=== PATIENT | female | born 1990 | race Asian ===

== ENCOUNTER 2023-12-22 07:37 | Inpatient (IN) ==
[2023-12-22] MEDS ORDERED: LIDOCAINE 1% LOCAL 20 ML VIAL INFIL PRN (08:36)
[2023-12-22] MEDS ORDERED: OXYTOCIN 30 UNITS/NSS 30 UNITS/500 ML BAG IV PRN ×2 (08:36→20:34)
[2023-12-22] MEDS ORDERED: CALCIUM CARBONATE 500 MG CHEWABLE TAB PO PRN (08:36)
[2023-12-22] MEDS ORDERED: ACETAMINOPHEN 325 MG TAB PO PRN ×2 (08:36→20:34)
--- NOTE | 2023-12-22 08:39 | History & Physical Report ---
Date of Service December 22, 2023 Assessment & Plan (1) IUGR (intrauterine growth restriction) affecting care of mother: (2) with 37 weeks completed gestation: Plan Patient has been extensively counseled by myself and Dr. Bennett last week. discussed the inability to differentiate iugr from constitutional sga. Both of the parents are very little people and likely more constitutional than iugr. Discussed that baby may not tolerate labor and will require c/s. discussed that hopefully the baby will do well here but if needs higher level of care, will need transfer to nicu. This might mean they are . If they do not want any change of separation, would recommend delivery at tertiary care center. Patient and FOB are ok with proceeding here. category one strip noted and reactive nst. Will need cervical ripening and discussed papa r/b/se of solomon, they agree. Discussed epidural, solomon, pitocin, arom. This conversation was held using an rangeland management specialist. All questions answered to the best of my ability. Admission and Anticipated Discharge Date Admission Date: December 22, 2023 History of Present Illness Chief Complaint: iol for iugr Primary Care Provider: NO PCP Patient is a 33yovf who presents to labor and delivery at 37 4/7 weeks for iol for iugr. Patient is a transfer of care at 32 weeks from [facility]. Most recent ultrasound showed efw 2%, 1962g, 4#5oz +/- 10 oz. discussed with peds hospitalist who notes they are ok with the delivery here. She notes good fm and testing has always been very reassuring. Notes good fm. no lof/vb. and Delivery Plans Transfer into care @ 32+ weeks IUGR *Twice weekly NST/DVP@Dx *Weeklyl doppler@Dx *Growth US Q4wk @Dx *Deliver [id number] (unless abnml flow) *Deliver 37wks (less than 3rd%) <2% - IOL 12/21 [place] rangeland management specialist used for provider OB Labs: Blood Type B Positive 11/14/23 Antibody Screen NEGATIVE 11/14/23 Hgb 11.8 g/dl (12.0-16.0) L 11/14/23 Hct 36.2 % (37.0-47.0) L 11/14/23 MCV 83.4 fL (80.0-100.0) 11/14/23 Plt Count 265 K/uL (130-400) 11/14/23 Rubella IgG Antibody Immune (Immune) 11/14/23 Treponema pallidum Ab Negative (Negative) 11/14/23 Hep Bs Antigen Negative (Negative) 11/14/23 Hepatitis C Antibody Negative (Negative) 11/14/23 HIV 1&2 Ab/P24 Ag 4thGn Negative (Negative) 11/14/23 OB Optional Labs: Chlamydia trachomatis RNA Not Detected (NotDetected) 11/14/23 Neisseria gonorrhoeae RNA Not Detected (NotDetected) 11/14/23 Labs Reviewed: first trimester screen and cfDNA--low risk smp gbs neg Allergies Allergy/AdvReac Type Severity Reaction Status Date / Time No Known Allergies Allergy Verified 12/16/23 13:18 Home Medications Medication Instructions Recorded Confirmed Type vit 18-[id number]-zubse-dha PO 11/14/23 12/16/23 History [ + DHA] Breast Pump #1 ea 12/12/23 12/16/23 Rx Patient History Medical History Varicella vaccination Surgical History No history of previous surgery Family History Denies family history of Ovarian cancer Breast cancer Colorectal cancer Social History Smoking Status: Never smoker Do You Dip or Chew Tobacco: No; Hx Alcohol Use: No Hx Substance Use: No Preferred Language: Greenlandic Communication Tools: IPad Visual Impairment: Limited Hearing Ability: Normal Gate Services Supervisor Required: Yes and Video Beliefs That Will Affect Care: None marital status: marital status details: Kelsey House ( [phone] Current Living Situation: Spouse Current Living Situation Comment: lives with spouse, no pets current occupational status: unemployed current occupation: homemaker Feels Safe at Home: Yes Safety Concerns: Feels Safe At This Time Diet: regular Gender Identity: Female Assistive Devices: Glasses OB History g1--current WHIP SAWYER History noncontributory Physical Exam Constitutional: WD/WN, vitals as above Gastrointestinal (Abdomen): soft, gravid, nt Neurologic: patellar DTR's 2+ bilat, sensation intact Psychiatric: A+Ox3, euthymic affect Genitourinary: cx--1/50/-2/mid/soft toco--occasional contractions efm--130s wtih mod variability, accels to 160s, no decels Results & Data Vital Signs (Past 12 Hours) Vital Signs Temp Pulse Resp BP 12/22/23 07:48 37.2 C 85 18 117/64 Coding Level of Care Code None Diagnoses IUGR (intrauterine growth restriction) affecting care of mother O36.5990 with 37 weeks completed gestation Z3A.37
[2023-12-22 09:23] LABS: Hematocrit (blood only) 37.3 % (37.0-47.0); Hemoglobin 12.2 g/dl (12.0-16.0); Mean Corpuscular Hemoglobin 27.2 pg (25.0-34.0); Mean Corpuscular Hgb Conc 32.7 g/dL (32.0-36.0); Mean Corpuscular Volume 83.1 fL (80.0-100.0); Mean Platelet Volume 10.6 fL (9.4-12.4); Platelet Count 281 K/uL (130-400); RDW Coefficient of Variation 13.7 % (11.5-14.5); RDW Standard Deviation 41.1 fL (36.4-46.3); Red Blood Count 4.49 M/uL (4.20-5.40); White Blood Count 11.45 K/ul (4.8-10.8)
--- NOTE | 2023-12-22 09:31 | Communication Note ---
Date of Service: December 22, [address] solomon failed as balloon just kept falling out when inflating. plan to just start with pitocin. cx --2+/50/-2, very soft.
[2023-12-22] MEDS: LACTATED RINGER'S 1,000 ML IV PRN (09:35)
[2023-12-22] MEDS: OXYTOCIN 30 UNITS/NSS 30 UNITS/500 ML BAG IV PRN (09:56)
--- NOTE | 2023-12-22 14:20 | Labor Progress Brief Note ---
Date of Service December 22, 2023 Subjective not noting alot of pain with contractions. Assessment & Plan (1) with 37 weeks completed gestation: (2) IUGR (intrauterine growth restriction) affecting care of mother: Plan Discussed options of epidural then arom vs. arom then epidural with artificial breeding technician. She elected to go wtih arom. Exam was uncomfortable. Epidural prior to next exam. fetus categroy one. Admission and Anticipated Discharge Date Admission Date: December 22, 2023 Physical Exam Physical Exam: cx--50/-2 arom--clear toco--q2-3, pit at 12 efm--130s wtih mod variability, accels present, no decels Results & Data Vital Signs (Past 12 Hours) Vital Signs Temp Pulse Resp BP 12/22/23 14:15 37.1 C 20 12/22/23 13:49 82 12/22/23 13:49 107/58 L 12/22/23 13:19 85 12/22/23 13:19 107/60 12/22/23 12:49 76 12/22/23 12:49 105/57 L 12/22/23 12:19 82 12/22/23 12:19 104/59 L 12/22/23 12:05 37.1 C 20 12/22/23 11:49 75 12/22/23 11:49 93/54 L 12/22/23 11:13 77 12/22/23 11:13 93/50 L 12/22/23 11:12 73 12/22/23 11:12 89/55 L 12/22/23 10:56 88 16 12/22/23 10:56 106/62 12/22/23 10:41 85 12/22/23 10:41 106/62 12/22/23 10:26 81 16 12/22/23 10:26 111/65 12/22/23 10:11 78 12/22/23 10:11 115/68 12/22/23 07:48 37.2 C 85 18 117/64 Coding Level of Care Code None Diagnoses with 37 weeks completed gestation Z3A.37 IUGR (intrauterine growth restriction) affecting care of mother O36.5990
[2023-12-22] MEDS ORDERED: NALOXONE HCL 0.4 MG/1 ML VIAL/CARP IV PRN (15:41)
[2023-12-22] MEDS ORDERED: NALOXONE HCL 1 MG in SODIUM CHLORIDE 0.9% 1,000 ML IV PRN (15:41)
[2023-12-22] MEDS ORDERED: BUPIVACAINE 0.25% PF 30 ML VIAL EPI PRN (15:41)
[2023-12-22] MEDS ORDERED: BUPIVACAINE 0.25% PF 30 ML VIAL EPI STA (15:41)
[2023-12-22] MEDS ORDERED: ROPIVACAINE 0.5% PF 5 MG/ML 20 ML VIAL EPI PRN (15:41)
[2023-12-22] MEDS ORDERED: SODIUM CHLORIDE 0.9% PF INJ 10 ML VIAL EPI PRN (15:41)
[2023-12-22] MEDS ORDERED: LIDOCAINE 2% MPF LOCAL 5 ML VIAL EPI PRN (15:41)
[2023-12-22] MEDS ORDERED: fentaNYL citrate PF 100 MCG/2 ML VIAL EPI STA (15:41)
[2023-12-22] MEDS ORDERED: NALBUPHINE HCL INJ 10 MG/ML AMP IV PRN (15:41)
[2023-12-22] MEDS ORDERED: SODIUM CHLORIDE 0.9% PF INJ 10 ML VIAL EPI STA (15:41)
[2023-12-22] MEDS ORDERED: ePHEDrine sulfate 50 MG/ML AMP IV PRN (15:41)
[2023-12-22] MEDS ORDERED: LIDOCAINE 2%/EPINEPHRINE 1:200,000 20 ML PF EPI STA (15:41)
[2023-12-22] MEDS ORDERED: diphenhydrAMINE 50 MG/ML VIAL IV PRN (15:41)
[2023-12-22] MEDS ORDERED: fentANYL 2 MCG/ML BUPIVacaine 0.125%-NSS 100ML BAG EPI PRN (15:41)
[2023-12-22] MEDS ORDERED: fentaNYL citrate PF 100 MCG/2 ML VIAL EPI PRN (15:41)
--- NOTE | 2023-12-22 15:43 | Anesthesiology Consultation ---
Date of Service December 22, 2023 Assessment & Plan Chart Review Chart Review: Acceptable Risk for Labor Epidural Consults Requested none History Height/Weight Height: 5 ft 1.42 in Weight: 67.313 kg Allergies Allergy/AdvReac Type Severity Reaction Status Date / Time No Known Allergies Allergy Verified 12/16/23 13:18 Medications Home Medications Medication Instructions Recorded Confirmed Last Taken Breast Pump #1 ea 12/12/23 12/16/23 Unknown vits no.124-ferrous fum 1 tab PO DAILY 12/22/23 12/22/23 12/21/23 07:00 27 mg iron-folic acid 800 mcg tablet ( Vitamin) Active Medications Generic Name Dose Route Start Last Admin Trade Name Freq PRN Reason Stop Dose Admin Lactated Ringer's 1,000 mls @ 125 mls/hr 12/22/23 08:36 12/22/23 09:35 Lr IV 12/24/23 08:35 50 mls/hr .Q8H PRN Administration L&D Protocol Protocol Oxytocin 30 units in 500 mls @ 16 mls/hr 12/22/23 09:46 12/22/23 15:15 Pitocin 30 Units/Nss IV 12/24/23 09:45 0.96 units/hr .Q24H PRN 16 mls/hr Labor Induction/Augmentation Titration Protocol 0.96 UNITS/HR Past Medical History Medical History Varicella vaccination Past Family History Family History Denies family history of Ovarian cancer Breast cancer Colorectal cancer Past Surgical History Surgical History No history of previous surgery Social History Smoking Status: Never smoker Do You Dip or Chew Tobacco: No Hx Alcohol Use: No Hx Substance Use: No substance use type: does not use Physical Exam Vital Signs Last Vital Signs Temp 37.1 C 12/22/23 14:15 Pulse 76 12/22/23 15:18 Resp 20 12/22/23 14:15 BP 104/61 12/22/23 15:18 Testing Laboratory Results 12/22/23 08:57
[2023-12-22] MEDS: LIDOCAINE 2%/EPINEPHRINE 1:200,000 20 ML PF ONE (16:00)
[2023-12-22] MEDS: fentANYL 2 MCG/ML BUPIVacaine 0.125%-NSS 100ML BAG ONE (16:07)
[2023-12-22] MEDS: BUPIVACAINE 0.25% PF 30 ML VIAL ONE (16:16)
[2023-12-22] MEDS: SODIUM CHLORIDE 0.9% PF INJ 10 ML VIAL ONE (16:17)
[2023-12-22] MEDS: fentaNYL citrate PF 100 MCG/2 ML VIAL ONE (16:17)
--- NOTE | 2023-12-22 18:04 | Labor Progress Brief Note ---
Date of Service December 22, 2023 Subjective comfortable Assessment & Plan (1) with 37 weeks completed gestation: (2) IUGR (intrauterine growth restriction) affecting care of mother: Plan continue current management. fetus mostly category 1. Admission and Anticipated Discharge Date Admission Date: December 22, 2023 Physical Exam Physical Exam: toco--qq2-4, pit at 20 efm--130s with mod variability, accels present, rare variable Results & Data Vital Signs (Past 12 Hours) Vital Signs Temp Pulse Resp BP Pulse Ox 12/22/23 18:00 93 H 12/22/23 17:55 96 12/22/23 17:55 83 12/22/23 17:50 95 12/22/23 17:50 84 12/22/23 17:48 81 12/22/23 17:48 106/61 12/22/23 17:45 96 12/22/23 17:45 87 12/22/23 17:40 95 12/22/23 17:40 81 12/22/23 17:35 94 12/22/23 17:35 85 12/22/23 17:33 81 12/22/23 17:33 101/59 L 12/22/23 17:30 94 12/22/23 17:30 88 12/22/23 17:25 95 12/22/23 17:25 83 12/22/23 17:20 95 12/22/23 17:20 76 12/22/23 17:19 80 12/22/23 17:19 104/61 12/22/23 17:15 95 12/22/23 17:15 85 12/22/23 17:10 96 12/22/23 17:10 82 12/22/23 17:05 96 12/22/23 17:05 83 12/22/23 17:04 85 12/22/23 17:04 104/62 12/22/23 17:00 93 12/22/23 17:00 85 12/22/23 16:55 93 12/22/23 16:55 83 12/22/23 16:53 92 12/22/23 16:53 83 12/22/23 16:50 93 12/22/23 16:50 85 12/22/23 16:48 86 12/22/23 16:48 102/58 L 12/22/23 16:45 16 94 12/22/23 16:45 81 12/22/23 16:44 94 12/22/23 16:44 84 12/22/23 16:40 36.9 C 16 12/22/23 16:40 95 12/22/23 16:40 87 12/22/23 16:37 94 12/22/23 16:37 81 12/22/23 16:35 96 12/22/23 16:35 78 12/22/23 16:33 82 12/22/23 16:33 102/60 12/22/23 16:30 95 12/22/23 16:30 86 12/22/23 16:28 94 12/22/23 16:28 81 12/22/23 16:25 95 12/22/23 16:25 77 12/22/23 16:21 94 12/22/23 16:21 85 12/22/23 16:20 95 12/22/23 16:20 83 12/22/23 16:18 85 12/22/23 16:18 103/59 L 12/22/23 16:16 83 12/22/23 16:16 101/58 L 12/22/23 16:15 96 12/22/23 16:15 85 12/22/23 16:14 75 12/22/23 16:14 104/59 L 12/22/23 16:12 73 12/22/23 16:12 101/56 L 12/22/23 16:10 95 12/22/23 16:10 73 12/22/23 16:10 95/53 L 12/22/23 16:10 94 12/22/23 16:10 83 12/22/23 16:08 83 12/22/23 16:08 100/55 L 12/22/23 16:06 74 12/22/23 16:06 105/56 L 12/22/23 16:05 96 12/22/23 16:05 88 12/22/23 16:05 76 12/22/23 16:05 86/48 L 12/22/23 16:02 86 12/22/23 16:02 98/54 L 12/22/23 16:00 97 12/22/23 16:00 92 H 12/22/23 15:55 96 12/22/23 15:55 69 12/22/23 15:50 97 12/22/23 15:50 85 12/22/23 15:50 106/68 12/22/23 15:18 76 12/22/23 15:18 104/61 12/22/23 14:49 81 12/22/23 14:49 106/61 12/22/23 14:18 82 12/22/23 14:18 105/66 12/22/23 14:15 37.1 C 20 12/22/23 13:49 82 12/22/23 13:49 107/58 L 12/22/23 13:19 85 12/22/23 13:19 107/60 12/22/23 12:49 76 12/22/23 12:49 105/57 L 12/22/23 12:19 82 12/22/23 12:19 104/59 L 12/22/23 12:05 37.1 C 20 12/22/23 11:49 75 12/22/23 11:49 93/54 L 12/22/23 11:13 77 12/22/23 11:13 93/50 L 12/22/23 11:12 73 12/22/23 11:12 89/55 L 12/22/23 10:56 88 16 12/22/23 10:56 106/62 12/22/23 10:41 85 12/22/23 10:41 106/62 12/22/23 10:26 81 16 12/22/23 10:26 111/65 12/22/23 10:11 78 12/22/23 10:11 115/68 12/22/23 07:48 37.2 C 85 18 117/64 Coding Level of Care Code None Diagnoses with 37 weeks completed gestation Z3A.37 IUGR (intrauterine growth restriction) affecting care of mother O36.5990
[2023-12-22] MEDS: ePHEDrine sulfate 50 MG/ML AMP ONE (19:11)
[2023-12-22 19:29] VITALS: RESP 18
--- NOTE | 2023-12-22 19:36 | Labor Progress Brief Note ---
Date of Service December 22, 2023 Subjective more uncomfortable Assessment & Plan (1) with 37 weeks completed gestation: (2) IUGR (intrauterine growth restriction) affecting care of mother: Plan begin second stage. Will have peds at delivery. Admission and Anticipated Discharge Date Admission Date: December 22, 2023 Physical Exam Physical Exam: c/c/+3 efm--150s with mod variabilityi, variables with some contractions toco--q2-3min Results & Data Vital Signs (Past 12 Hours) Vital Signs Temp Pulse Resp BP Pulse Ox 12/22/23 19:30 97 12/22/23 19:30 75 12/22/23 19:25 95 12/22/23 19:25 84 12/22/23 19:20 95 12/22/23 19:20 82 12/22/23 19:18 72 12/22/23 19:18 103/60 12/22/23 19:15 18 12/22/23 19:15 36.7 C 18 12/22/23 19:15 96 12/22/23 19:15 85 12/22/23 19:10 95 12/22/23 19:10 89 12/22/23 19:05 96 12/22/23 19:05 89 12/22/23 19:03 96 H 12/22/23 19:03 111/65 12/22/23 19:00 95 12/22/23 19:00 92 H 12/22/23 18:55 95 12/22/23 18:55 91 H 12/22/23 18:50 95 12/22/23 18:50 85 12/22/23 18:48 90 12/22/23 18:48 111/63 12/22/23 18:45 95 12/22/23 18:45 90 12/22/23 18:40 95 12/22/23 18:40 90 12/22/23 18:35 96 12/22/23 18:35 93 H 12/22/23 18:33 90 12/22/23 18:33 116/65 12/22/23 18:30 96 12/22/23 18:30 95 H 12/22/23 18:25 95 12/22/23 18:25 86 12/22/23 18:20 95 12/22/23 18:20 85 12/22/23 18:19 87 12/22/23 18:19 116/60 12/22/23 18:15 95 12/22/23 18:15 89 12/22/23 18:10 95 12/22/23 18:10 89 12/22/23 18:05 95 12/22/23 18:05 89 12/22/23 18:03 90 12/22/23 18:03 36.7 C 20 114/64 12/22/23 18:00 95 12/22/23 18:00 93 H 12/22/23 17:55 96 12/22/23 17:55 83 12/22/23 17:50 95 12/22/23 17:50 84 12/22/23 17:48 81 12/22/23 17:48 106/61 12/22/23 17:45 96 12/22/23 17:45 87 12/22/23 17:40 95 12/22/23 17:40 81 12/22/23 17:35 94 12/22/23 17:35 85 12/22/23 17:33 81 12/22/23 17:33 101/59 L 12/22/23 17:30 94 12/22/23 17:30 88 12/22/23 17:25 95 12/22/23 17:25 83 12/22/23 17:20 95 12/22/23 17:20 76 12/22/23 17:19 80 12/22/23 17:19 104/61 12/22/23 17:15 95 12/22/23 17:15 85 12/22/23 17:10 96 12/22/23 17:10 82 12/22/23 17:05 96 12/22/23 17:05 83 12/22/23 17:04 85 12/22/23 17:04 104/62 12/22/23 17:00 93 12/22/23 17:00 85 12/22/23 16:55 93 12/22/23 16:55 83 12/22/23 16:53 92 12/22/23 16:53 83 12/22/23 16:50 93 12/22/23 16:50 85 12/22/23 16:48 86 12/22/23 16:48 102/58 L 12/22/23 16:45 16 94 12/22/23 16:45 81 12/22/23 16:44 94 12/22/23 16:44 84 12/22/23 16:40 36.9 C 16 12/22/23 16:40 95 12/22/23 16:40 87 12/22/23 16:37 94 12/22/23 16:37 81 12/22/23 16:35 96 12/22/23 16:35 78 12/22/23 16:33 82 12/22/23 16:33 102/60 12/22/23 16:30 95 12/22/23 16:30 86 12/22/23 16:28 94 12/22/23 16:28 81 12/22/23 16:25 95 12/22/23 16:25 77 12/22/23 16:21 94 12/22/23 16:21 85 12/22/23 16:20 95 12/22/23 16:20 83 12/22/23 16:18 85 12/22/23 16:18 103/59 L 12/22/23 16:16 83 12/22/23 16:16 101/58 L 12/22/23 16:15 96 12/22/23 16:15 85 12/22/23 16:14 75 12/22/23 16:14 104/59 L 12/22/23 16:12 73 12/22/23 16:12 101/56 L 12/22/23 16:10 95 12/22/23 16:10 73 12/22/23 16:10 95/53 L 12/22/23 16:10 94 12/22/23 16:10 83 12/22/23 16:08 83 12/22/23 16:08 100/55 L 12/22/23 16:06 74 12/22/23 16:06 105/56 L 12/22/23 16:05 96 12/22/23 16:05 88 12/22/23 16:05 76 12/22/23 16:05 86/48 L 12/22/23 16:02 86 12/22/23 16:02 98/54 L 12/22/23 16:00 97 12/22/23 16:00 92 H 12/22/23 15:55 96 12/22/23 15:55 69 12/22/23 15:50 97 12/22/23 15:50 85 12/22/23 15:50 106/68 12/22/23 15:18 76 12/22/23 15:18 104/61 12/22/23 14:49 81 12/22/23 14:49 106/61 12/22/23 14:18 82 12/22/23 14:18 105/66 12/22/23 14:15 37.1 C 20 12/22/23 13:49 82 12/22/23 13:49 107/58 L 12/22/23 13:19 85 12/22/23 13:19 107/60 12/22/23 12:49 76 12/22/23 12:49 105/57 L 12/22/23 12:19 82 12/22/23 12:19 104/59 L 12/22/23 12:05 37.1 C 20 12/22/23 11:49 75 12/22/23 11:49 93/54 L 12/22/23 11:13 77 12/22/23 11:13 93/50 L 12/22/23 11:12 73 12/22/23 11:12 89/55 L 12/22/23 10:56 88 16 12/22/23 10:56 106/62 12/22/23 10:41 85 12/22/23 10:41 106/62 12/22/23 10:26 81 16 12/22/23 10:26 111/65 12/22/23 10:11 78 12/22/23 10:11 115/68 12/22/23 07:48 37.2 C 85 18 117/64 Coding Level of Care Code None Diagnoses with 37 weeks completed gestation Z3A.37 IUGR (intrauterine growth restriction) affecting care of mother O36.5990
[2023-12-22] MEDS: METHYLERGONOVINE MALEATE 0.2 MG/ML AMP IM ONE (20:18)
--- NOTE | 2023-12-22 20:31 | Delivery Summary ---
Supervising Physician Co-Signing Physician Notes Pre-operative Diagnosis: at 37 weeks iugr Post-operative Diagnosis: same Procedure: pitocin induction arom epidural second degree and bilateral labial laceration repairs QBL: 379 Anesthesia: epidural Procedure: The patient presented to labor and delivery for iol for iugr. She underwent pitocin iol, arom for clear fluid and epidural. she then progressed to c/c/+3. The patient pushed to deliver a viable female in aida position. The nose and mouth were bulb suctioned on the perineum , a lose nuchal cord was reduced and the rest of the was then delivered without difficulty. The baby was vigorous. The nose and mouth were again bulb suctioned and the infant was placed in the maternal abdomen for drying and attention. Cord was clamped and cut at one minute of life. Cord blood and segment obtained. Placenta delivered spontaneous, intact with a three vessel cord. Cervix/sulci/rectum were intact. A second degree perineal laceration and bilateral labial lacerations were repaired in the normal standard fashion. Hemostasis obtained with dilute pitocin and fundal massage. Apgars were 8/9. Mother and baby doing well at the end of the delivery Vaginal Delivery Summary Date of Service December 22, 2023 Vaginal Delivery Summary and 2nd Degree LAC (bilateral labial) [facility] Vaginal Delivery Charge Delivery Type Details: and 2nd Degree LAC (bilateral labial)
[2023-12-22] MEDS ORDERED: oxyCODONE/ACETAMINOPHEN 5mg/325mg TAB PO PRN (20:34)
[2023-12-22] MEDS ORDERED: HYDROCORTISONE ACETATE 25 MG SUPP PR PRN (20:34)
[2023-12-22] MEDS ORDERED: bisacodyL 10 MG SUPP PR PRN (20:34)
--- NOTE | 2023-12-22 20:48 | Anesthesia Procedure Note ---
Date of Service December 22, 2023 Anesthesia Post Epidural Note Vital Signs Vital Signs: Temp Pulse Resp BP Pulse Ox 36.7 C 100 H 18 121/58 L 92 12/22/23 20:30 12/22/23 20:27 12/22/23 20:30 12/22/23 20:42 12/22/23 20:10 Pain Intensity Abdomen: Pain Intensity: 3 Notes Mental Status: alert / awake / arousable and participated in evaluation Nausea / Vomiting: adequately controlled Pain: adequately controlled Airway Patency, RR, SpO2: stable & adequate BP & HR: stable & adequate Hydration State: stable & adequate Neuraxial Anesthesia: was administered and sensory block is resolving Anesthetic Complications: no major complications apparent and Pt Satisfied with anesthetic care Epidural: Removed without complications and With tip intact
[2023-12-22] MEDS: DOCUSATE SODIUM 100 MG CAP PO SCH (21:16)
[2023-12-22] MEDS: BENZOCAINE 20% SPRY 85 APPLN/85 GM CAN EXT PRN (21:16)
[2023-12-22] MEDS: IBUPROFEN 600 MG TAB PO PRN (21:16)
[2023-12-22] MEDS: DIPHTHER/TETAN/PERTUS Vaccine (Tdap, Adol/Adult) 0.5mL IM ONE (22:38)
[2023-12-23] MEDS ORDERED: METHYLERGONOVINE MALEATE 0.2 MG/ML AMP ONE (00:13)
--- NOTE | 2023-12-23 06:04 | Obstetrical Progress Note ---
Date of Service <Federico Issa DO - Last Filed: 12/23/23 07:27> December 23, 2023 Assessment & Plan <Federico TishOlivia Issa DO - Last Filed: 12/23/23 07:27> (1) state: Patient is a 33yo pp day 1 s/p at 37w complicated by IUGR. Feels well this AM, VSS. Continue care Ambulation and as tolerated Pain control w/ ibuprofen, benzocaine, tylenol, Percocet as needed Hgb: 12.2 yesterday (12/23/23) Home: possibly tomorrow Follow up with Dr. Thompson in 6wks (2) Perineal laceration involving labia: 2nd degree perineal laceration, b/l labial lacerations during delivery Repaired in the normal fashion Monitor for signs of infection Encounter type: initial encounter Qualified Code(s): S31.41XA - Laceration without foreign body of vagina and vulva, initial encounter <Wendy Thompson MD, FACOG - Last Filed: 12/23/23 08:46> (1) state: (2) Perineal laceration involving labia: Subjective <Federico Issa DO - Last Filed: 12/23/23 07:27> Patient is a 33yo pp day 1 s/p at 37w complicated by IUGR, 2nd deg perineal laceration and b/l labial lacs during delivery. Ambulating: yes Voiding: urinated, no BM Passing gas: yes Diet tolerance: yes but denies having much taste Lochia: unsure if decreased much Feeding type: trying breast, bottle as necessary Current pain: mild lower back pain Feeling well this morning, resting comfortably in NAD. Denies fever, body aches, chills, headache, vision changes, chest pain, SOB, LE pain/swelling, or LE numbness/tingling. Review of Systems as above Physical Exam <Federico Issa DO - Last Filed: 12/23/23 07:27> General: A&Ox4, resting comfortably in NAD, nontoxic in appearance Skin: warm, dry, intact HEENT: NC/AT, anicteric sclerae, conjunctive w/o injection, moist mucous membranes Heart: +s1/s2, RRR, no murmurs, rubs, or gallops Lungs: equal air entry b/l, clear to auscultation, no wheeze, rales, or rhonchi Abd: +BS, mild tenderness to palpation, no significant swelling uterine fundus firm at level of umbilicus. Ext: no significant erythema/swelling, no tenderness to palpation, negative Kelechi's, no clubbing/cyanosis Neuro: speech intact, no facial droop, moves all extremities Results & Data <Federico Issa DO - Last Filed: 12/23/23 07:27> Vital Signs (Past 12 Hours) Vital Signs Temp Pulse Pulse Resp BP BP Pulse Ox 12/23/23 04:00 36.6 C 72 18 105/70 97 12/23/23 00:00 36.7 C 88 18 99/64 L 97 12/22/23 22:27 91 H 12/22/23 22:27 104/63 12/22/23 22:12 89 12/22/23 22:12 106/65 12/22/23 21:57 86 12/22/23 21:57 111/67 12/22/23 21:42 88 12/22/23 21:42 119/75 12/22/23 21:30 18 12/22/23 21:27 77 12/22/23 21:27 116/75 12/22/23 21:12 85 12/22/23 21:12 117/77 12/22/23 21:00 36.7 C 18 12/22/23 20:58 91 H 12/22/23 20:58 113/67 12/22/23 20:42 121/58 L 12/22/23 20:30 36.7 C 18 12/22/23 20:27 100 H 12/22/23 20:27 112/57 L 12/22/23 20:18 109 H 12/22/23 20:18 113/54 L 12/22/23 20:10 92 12/22/23 20:10 134 H 12/22/23 20:05 98 12/22/23 20:05 98 H 12/22/23 20:04 104 H 12/22/23 20:04 112/57 L 12/22/23 20:01 18 12/22/23 20:01 18 12/22/23 20:00 95 12/22/23 20:00 92 H 12/22/23 19:55 97 12/22/23 19:55 101 H 12/22/23 19:50 96 12/22/23 19:50 92 H 12/22/23 19:49 87 L 12/22/23 19:49 91 H 12/22/23 19:49 106/59 L 12/22/23 19:45 97 12/22/23 19:45 86 12/22/23 19:40 95 12/22/23 19:40 89 12/22/23 19:35 98 12/22/23 19:35 75 12/22/23 19:35 91 12/22/23 19:35 85 12/22/23 19:34 80 12/22/23 19:34 119/71 12/22/23 19:30 18 12/22/23 19:30 36.9 C 18 12/22/23 19:30 97 12/22/23 19:30 75 12/22/23 19:25 95 12/22/23 19:25 84 12/22/23 19:20 95 12/22/23 19:20 82 12/22/23 19:18 72 12/22/23 19:18 103/60 12/22/23 19:15 18 12/22/23 19:15 36.7 C 18 12/22/23 19:15 96 12/22/23 19:15 85 12/22/23 19:10 95 12/22/23 19:10 89 12/22/23 19:05 96 12/22/23 19:05 89 12/22/23 19:03 96 H 12/22/23 19:03 111/65 12/22/23 19:00 95 12/22/23 19:00 92 H 12/22/23 18:55 95 12/22/23 18:55 91 H 12/22/23 18:50 95 12/22/23 18:50 85 12/22/23 18:48 90 12/22/23 18:48 111/63 12/22/23 18:45 95 12/22/23 18:45 90 12/22/23 18:40 95 12/22/23 18:40 90 12/22/23 18:35 96 12/22/23 18:35 93 H 12/22/23 18:33 90 12/22/23 18:33 116/65 12/22/23 18:30 96 12/22/23 18:30 95 H 12/22/23 18:25 95 12/22/23 18:25 86 12/22/23 18:20 95 12/22/23 18:20 85 12/22/23 18:19 87 12/22/23 18:19 116/60 12/22/23 18:15 95 12/22/23 18:15 89 12/22/23 18:10 95 12/22/23 18:10 89 12/22/23 18:05 95 12/22/23 18:05 89 12/22/23 18:03 90 12/22/23 18:03 36.7 C 20 114/64 O2 Del Method 12/23/23 04:00 Room Air 12/23/23 00:00 Room Air 12/22/23 22:27 12/22/23 22:27 12/22/23 22:12 12/22/23 22:12 12/22/23 21:57 12/22/23 21:57 12/22/23 21:42 12/22/23 21:42 12/22/23 21:30 12/22/23 21:27 12/22/23 21:27 12/22/23 21:12 12/22/23 21:12 12/22/23 21:00 12/22/23 20:58 12/22/23 20:58 12/22/23 20:42 12/22/23 20:30 12/22/23 20:27 12/22/23 20:27 12/22/23 20:18 12/22/23 20:18 12/22/23 20:10 12/22/23 20:10 12/22/23 20:05 12/22/23 20:05 12/22/23 20:04 12/22/23 20:04 12/22/23 20:01 12/22/23 20:01 12/22/23 20:00 12/22/23 20:00 12/22/23 19:55 12/22/23 19:55 12/22/23 19:50 12/22/23 19:50 12/22/23 19:49 12/22/23 19:49 12/22/23 19:49 12/22/23 19:45 12/22/23 19:45 12/22/23 19:40 12/22/23 19:40 12/22/23 19:35 12/22/23 19:35 12/22/23 19:35 12/22/23 19:35 12/22/23 19:34 12/22/23 19:34 12/22/23 19:30 12/22/23 19:30 12/22/23 19:30 12/22/23 19:30 12/22/23 19:25 12/22/23 19:25 12/22/23 19:20 12/22/23 19:20 12/22/23 19:18 12/22/23 19:18 12/22/23 19:15 12/22/23 19:15 12/22/23 19:15 12/22/23 19:15 12/22/23 19:10 12/22/23 19:10 12/22/23 19:05 12/22/23 19:05 12/22/23 19:03 12/22/23 19:03 12/22/23 19:00 12/22/23 19:00 12/22/23 18:55 12/22/23 18:55 12/22/23 18:50 12/22/23 18:50 12/22/23 18:48 12/22/23 18:48 12/22/23 18:45 12/22/23 18:45 12/22/23 18:40 12/22/23 18:40 12/22/23 18:35 12/22/23 18:35 12/22/23 18:33 12/22/23 18:33 12/22/23 18:30 12/22/23 18:30 12/22/23 18:25 12/22/23 18:25 12/22/23 18:20 12/22/23 18:20 12/22/23 18:19 12/22/23 18:19 12/22/23 18:15 12/22/23 18:15 12/22/23 18:10 12/22/23 18:10 12/22/23 18:05 12/22/23 18:05 12/22/23 18:03 12/22/23 18:03 Medications Administered Benzocaine (Benzocaine 20% [place] 85 Appln/85 Gm Can) 1 appln EXT PRN PRN PRN Reason: Perineal Discomfort Stop: 01/21/24 20:33 Last Admin: 12/22/23 21:16 Dose: 85 appln Documented By: AMV Docusate Sodium (Docusate Sodium 100 Mg Cap) 100 mg PO DAILY@08, ALTAGRACIA Stop: 01/21/24 20:59 Last Admin: 12/22/23 21:16 Dose: 100 mg Documented By: AMV Ibuprofen (Ibuprofen 600 Mg Tab) 600 mg PO Q4H PRN PRN Reason: Pain/JJ/Cramping/Fever Stop: 01/21/24 20:33 Last Admin: 12/22/23 21:16 Dose: 600 mg Documented By: AMV Supervising Physician <Wendy Thompson MD, FACOG - Last Filed: 12/23/23 08:46> Co-Signing Physician Notes Resident Physician Supervision Note: I interviewed and examined the patient. Discussed with Dr. Issa and agree with findings and plan as documented in the note. Any exceptions or clarifications are listed here: Doing well. Conversation had with hourly sign language interpreter services today. Questions answered. Routine care. Documented By: Wendy Thompson MD, FACOG Resident Activity Tracking <Federico Issa DO - Last Filed: 12/23/23 07:27> Resident Involvement: Resident Care Provided Care Provided: OB Delivery
[2023-12-23 08:04] LABS: Hematocrit (blood only) 37.1 % (37.0-47.0); Hemoglobin 12.4 g/dl (12.0-16.0)
[2023-12-23] MEDS: PRENATAL VITAMIN 1 TAB PO SCH (09:09)
[2023-12-23 09:49] VITALS: O2SAT 98
[2023-12-23] MEDS: bisacodyL 5 MG TABEC PO SCH (20:14)
[2023-12-24 02:43] VITALS: BP 97/63; TEMP 98.4
--- NOTE | 2023-12-24 06:08 | Obstetrical Progress Note ---
Date of Service <Federico Issa DO - Last Filed: 12/24/23 07:10> December 24, 2023 Assessment & Plan <Federico Issa DO - Last Filed: 12/24/23 07:10> (1) state: Patient is a 33yo pp day 2 s/p at 37w complicated by IUGR. Feels well this AM, VSS. Continue care Ambulation and as tolerated Pain control as needed Hgb: 12.2 -> 12.4 Home: today or tomorrow Follow up with Dr. Thompson in 6wks (2) Perineal laceration involving labia: 2nd degree perineal laceration, b/l labial lacerations during delivery Repaired in the normal fashion Monitor for signs of infection Encounter type: initial encounter Qualified Code(s): S31.41XA - Laceration without foreign body of vagina and vulva, initial encounter <Kim Petersen MD, FACOG - Last Filed: 12/24/23 09:51> (1) state: (2) Perineal laceration involving labia: Subjective <Federico Issa DO - Last Filed: 12/24/23 07:10> Patient is a 33yo pp day 2 s/p at 37w complicated by IUGR, 2nd deg perineal laceration and b/l labial lacs during delivery. Ambulating: yes Voiding: urinated, no BM Passing gas: yes Diet tolerance: yes but denies having much taste Lochia: unsure if decreased much Feeding type: trying breast, bottle as necessary Current pain: mild lower back pain Feeling well this morning, resting comfortably in NAD. Denies fever, body aches, chills, headache, vision changes, chest pain, SOB, LE pain/swelling, or LE numbness/tingling. Review of Systems as above Physical Exam <Federico Issa DO - Last Filed: 12/24/23 07:10> General: A&Ox4, resting comfortably in NAD, nontoxic in appearance Skin: warm, dry, intact HEENT: NC/AT, anicteric sclerae, conjunctive w/o injection, moist mucous membranes Heart: +s1/s2, RRR, no murmurs, rubs, or gallops Lungs: equal air entry b/l, clear to auscultation, no wheeze, rales, or rhonchi Abd: +BS, mild tenderness to palpation, no significant swelling, abdomen soft, uterine fundus firm 2 fingerwidths below level of umbilicus. Ext: no significant erythema/swelling, no tenderness to palpation, negative Kelechi's, no clubbing/cyanosis Neuro: speech intact, no facial droop, moves all extremities Results & Data <Federico Issa DO - Last Filed: 12/24/23 07:10> Vital Signs (Past 12 Hours) Vital Signs Temp Pulse Resp BP O2 Del Method 12/24/23 02:00 36.9 C 61 18 97/63 L Room Air 12/23/23 20:00 36.6 C 75 18 107/72 Room Air Supervising Physician <Kim Petersen MD, FACOG - Last Filed: 12/24/23 09:51> Co-Signing Physician Notes Resident Physician Supervision Note: I interviewed and examined the patient. Discussed with Dr. Issa and agree with findings and plan as documented in the note. Any exceptions or clarifications are listed here: [None] Documented By: Kim Petersen MD, FACOG Resident Activity Tracking <Federico Issa DO - Last Filed: 12/24/23 07:10> Resident Involvement: Resident Care Provided Care Provided: OB Delivery
[2023-12-24 10:20] VITALS: PULSE 72
== END 2023-12-24 10:55 | disposition home or self-care (01) | DRG 807 ==
LOC: 4S1 07:37 → 4E2 23:26